=== PATIENT | male | born 1970 | race Two or more races ===

== ENCOUNTER 2017-01-09 21:20 | Emergency (ER) | payer OTHER ==
[~2017-01-09] VITALS: Ht 172.7 cm; Wt 90.7 kg
[~2017-01-09 21:20] MED LIST: ACETAMINOPHEN PO; CIPRO PO; FERROUS SULFATE PO; IBUPROFEN PO; KEPPRA750 MG PO; PENICILLIN; PHENOLATE
[2017-01-09] MEDS ORDERED: ZYRTEC (21:54)
== END 2017-01-10 00:25 | disposition home or self-care (01) ==
LOC: SED 21:20
DX: S39.012A Strain of muscle, fascia and tendon of lower back, initial encounter (principal); F17.210 Nicotine dependence, cigarettes, uncomplicated; X50.0XXA Overexertion from strenuous movement or load, initial encounter; Y92.009 Unspecified place in unspecified non-institutional (private) residence as the place of occurrence of the external cause
CPT/HCPCS: 96372; 99283; J1885